=== PATIENT | male | born 1975 | race Two or more races ===

== ENCOUNTER 2021-03-23 11:52 | Emergency (ER) | payer MEDICAID, OTHER ==
[~2021-03-23] VITALS: Ht 182.9 cm; Wt 99.8 kg
[2021-03-23 14:35] VITALS: BP 172/69
== END 2021-03-23 14:45 | disposition home or self-care (01) ==
LOC: ER 11:52
DX: H10.9 Unspecified conjunctivitis (principal); I10 Essential (primary) hypertension; Z76.0 Encounter for issue of repeat prescription

== ENCOUNTER 2021-09-10 11:22 | Emergency (ER) | payer MEDICAID ==
[~2021-09-10] VITALS: Ht 165.1 cm; Wt 108.9 kg
[2021-09-10] MEDS ORDERED: ACETAMINOPHEN 500 MG TAB PO ONE (12:15)
[2021-09-10] MEDS ORDERED: cefTRIAXone 1GM/50ML D5W 50 ML IV ONE (13:30)
[2021-09-10] MEDS ORDERED: CLINDAMYCIN 900MG IV 50 ML IV ONE (13:30)
[2021-09-10] MEDS ORDERED: KETOROLAC TROMETH 30 MG/ML 1ML VIAL IV ONE (13:45)
[2021-09-10] MEDS ORDERED: MORPHINE SULFATE 4 MG/ML SYR/VIAL IV ONE (13:45)
[2021-09-10] MEDS ORDERED: ONDANSETRON HCL 4 MG/2 ML VIAL IV ONE (13:45)
[2021-09-10 14:08] LABS: Basophils # (auto) 0.1 10 ^3/uL (0-0.2); Basophils % (auto) 0.6 % (0.0-2.0); Eosinophils # (auto) 0.1 10 ^3/uL (0-0.8); Eosinophils % (auto) 0.6 % (0.0-7.0); Hematocrit 39.7 % (41.0-53.0); Hemoglobin 13.6 g/dL (13.5-17.5); Lymphocytes # (auto) 2.3 10 ^3/uL (0.4-5.4); Lymphocytes % (auto) 12.4 % (10.0-50.0); Mean Corpuscular Hemoglobin 30.9 pg (28.0-32.0); Mean Corpuscular Hgb Conc. 34.3 g/dL (32.0-36.0); Mean Corpuscular Volume 89.9 fL (80.0-100.0); Monocytes # (auto) 1.2 10 ^3/uL (0-1.3); Monocytes % (auto) 6.5 % (0.0-12.0); Neutrophils # (auto) 14.7 10 ^3/uL (1.6-8.6); Neutrophils % (auto) 79.9 % (37.0-80.0); Red Blood Cells 4.42 10^6/uL (4.5-5.90); Red Cell Distribution Width 13.5 % (11.8-14.3); White Blood Cell 18.4 10^3/uL (4.4-10.8)
[2021-09-10 14:24] LABS: Albumin 2.7 g/dL (3.4-5.0); Calcium 8.7 mg/dL (8.5-10.1); Potassium 3.3 mmol/L (3.5-5.1)
[2021-09-10 14:27] LABS: Lactic Acid w/Reflex 2.6 mmol/L (0.4-2.0)
[2021-09-10 14:29] LABS: Bilirubin, Total 0.5 mg/dL (0.2-1.0); Total Protein 6.9 g/dL (6.4-8.2)
[2021-09-10] MEDS ORDERED: SODIUM CHLORIDE 0.9% 3,000 ML IV ONE (16:00)
[2021-09-10] MEDS ORDERED: VANCOMYCIN 1GM/250ML 250 ML IV ONE (16:00)
[2021-09-10] MEDS ORDERED: POTASSIUM CHL 20MEQ/100ML 100 ML IV ONE (16:00)
[2021-09-10] MEDS ORDERED: VANCOMYCIN PER PHARMACY 0 MG IV SCH (16:45)
[2021-09-10] MEDS ORDERED: VANCOMYCIN 1GM/250ML 250 ML IV SCH (17:00)
[2021-09-10] MEDS ORDERED: PIPERACILLIN-TAZOB 3.375GM 100 ML IV SCH (18:00)
[2021-09-10] MEDS ORDERED: POTASSIUM CHL 20 Meq TABLET PO ONE (19:30)
[2021-09-10 22:51] VITALS: BP 117/56
== END 2021-09-10 22:09 | disposition short-term general hospital (02) ==
LOC: ER 11:22
DX: L03.116 Cellulitis of left lower limb (principal); M72.6 Necrotizing fasciitis; I10 Essential (primary) hypertension; Z20.822 Contact with and (suspected) exposure to COVID-19
CPT/HCPCS: 36415; 73700; 80053; 83605; 85025; 87040; 87426; 96365; 96367; 96375; 99285; J0696; J2270; J2405; J2543; J3370; J3490

== ENCOUNTER 2021-09-26 15:29 | Emergency (ER) | payer MEDICAID ==
[~2021-09-26] VITALS: Ht 152.4 cm; Wt 108.9 kg
[2021-09-26 15:29] VITALS: BP 122/66
== END 2021-09-27 00:17 | disposition left against medical advice (07) ==
LOC: ER 15:29
DX: Z76.0 Encounter for issue of repeat prescription (principal); Z53.21 Procedure and treatment not carried out due to patient leaving prior to being seen by health care provider